=== PATIENT | male | born 1955 | race Caucasian/White ===

== ENCOUNTER → 2016-07-05 | Outpatient (CLI) | payer BC ==
[2016-07-05 14:20] LABS: BASO % 0.1 %; BASO ABS # 0.01 K/uL (0-0.2); COMPLETE YES; EOS % 1.5 %; HEMATOCRIT 45.2 % (42-52); IG% 0.1 %; LYMPH % 31.5 %; LYMPH ABS # 2.13 K/uL (1.2-3.4); MEAN CELL VOLUME 84.5 fL (80-100); MEAN CORPUSCULAR HEMOGLOBIN 29.5 pg (25-34); MEAN PLATELET VOLUME 11.2 fL (7.4-10.4); MONO % 9.5 %; NEUT % 57.3 %; PLATELET COUNT 282 K/uL (130-400); RED BLOOD COUNT 5.35 M/uL (4.7-6.1); WHITE BLOOD COUNT 6.76 K/uL (4.8-10.8)
[2016-07-05 14:52] LABS: ALT/SGPT 40 U/L (12-78); AST/SGOT 18 U/L (15-37); BLOOD UREA NITROGEN 15 mg/dl (7-18); BUN/CREATININE RATIO 16.5 (10-20); CALCIUM 8.9 mg/dl (8.5-10.1); CARBON DIOXIDE 24 mmol/L (21-32); CHLORIDE 105 mmol/L (98-107); CHOLESTEROL 153 mg/dl (0-200); CREATININE 0.89 mg/dl (0.60-1.40); GLUCOSE 116 mg/dl (70-99); SODIUM 138 mmol/L (136-145)
[2016-07-05 14:56] LABS: ALB/GLOB RATIO 1.1 (0.9-2); ALKALINE PHOSPHATASE 80 U/L (45-117); CHOLESTEROL/HDL RATIO 2.3; HDL CHOLESTEROL 67 mg/dl; LDL CHOLESTEROL CALCULATED 72 mg/dl; PROSTATE SPECIFIC ANTIGEN 0.429 ng/ml (0.000-4.000); TRIGLYCERIDES 70 mg/dl (0-150); VERY LOW DENSITY LIPOPROT CALC 14 mg/dl
== END | disposition home or self-care (01) ==
LOC: C.LABSPEC 14:09
PROVIDERS: ATTEND Family Medicine
DX: Z00.00 Encounter for general adult medical examination without abnormal findings (principal); Z12.5 Encounter for screening for malignant neoplasm of prostate; I10 Essential (primary) hypertension; E78.2 Mixed hyperlipidemia; K21.9 Gastro-esophageal reflux disease without esophagitis

== ENCOUNTER → 2017-01-13 | Outpatient (CLI) | payer BC ==
[2017-01-13 14:55] LABS: BASO % 0.3 %; BASO ABS # 0.02 K/uL (0-0.2); COMPLETE YES; HEMATOCRIT 45.5 % (42-52); IG% 0.3 %; LYMPH % 30.4 %; MEAN CORPUSCULAR HEMOGLOBIN 30.1 pg (25-34); MEAN CORPUSCULAR HGB CONC 34.9 g/dl (32-36); MONO % 9.3 %; NEUT % 57.7 %; PLATELET COUNT 271 K/uL (130-400); RED BLOOD COUNT 5.29 M/uL (4.7-6.1); WHITE BLOOD COUNT 6.57 K/uL (4.8-10.8)
[2017-01-13 15:19] LABS: ALT/SGPT 41 U/L (12-78); AST/SGOT 22 U/L (15-37); BLOOD UREA NITROGEN 18 mg/dl (7-18); BUN/CREATININE RATIO 24.7 (10-20); CALCIUM 9.2 mg/dl (8.5-10.1); CARBON DIOXIDE 27 mmol/L (21-32); CHLORIDE 106 mmol/L (98-107); CREATININE 0.74 mg/dl (0.60-1.40); GLUCOSE 105 mg/dl (70-99); POTASSIUM 4.5 mmol/L (3.5-5.1); SODIUM 139 mmol/L (136-145)
[2017-01-13 15:21] LABS: ALKALINE PHOSPHATASE 97 U/L (45-117); CHOLESTEROL 120 mg/dl (0-200); CHOLESTEROL/HDL RATIO 2.1; HDL CHOLESTEROL 56 mg/dl; LDL CHOLESTEROL CALCULATED 53 mg/dl; TRIGLYCERIDES 54 mg/dl (0-150); VERY LOW DENSITY LIPOPROT CALC 11 mg/dl
== END | disposition home or self-care (01) ==
LOC: C.LABSPEC 14:28
PROVIDERS: ATTEND Family Medicine
DX: I10 Essential (primary) hypertension (principal); E78.2 Mixed hyperlipidemia

== ENCOUNTER → 2017-07-25 | Outpatient (CLI) | payer BC ==
[2017-07-25 13:55] LABS: BASO % 0.4 %; BASO ABS # 0.02 K/uL (0-0.2); EOS % 1.5 %; EOS ABS # 0.08 K/uL (0-0.5); HEMATOCRIT 44.1 % (42-52); HEMOGLOBIN 15.4 g/dL (14.0-18.0); IG# 0.01 K/uL (0.00-0.02); LYMPH ABS # 2.24 K/uL (1.2-3.4); MEAN CELL VOLUME 85.6 fL (80-100); MEAN CORPUSCULAR HEMOGLOBIN 29.9 pg (25-34); MEAN CORPUSCULAR HGB CONC 34.9 g/dl (32-36); MONO % 10.1 %; MONO ABS # 0.55 K/uL (0.11-0.59); NEUT % 46.8 %; NEUT ABS # 2.56 K/uL (1.4-6.5); PLATELET COUNT 239 K/uL (130-400); RED CELL DISTRIBUTION WIDTH CV 12.7 % (11.5-14.5); RED CELL DISTRIBUTION WIDTH SD 39.9 fL (36.4-46.3); WHITE BLOOD COUNT 5.46 K/uL (4.8-10.8)
[2017-07-25 14:21] LABS: ALT/SGPT 40 U/L (12-78); AST/SGOT 26 U/L (15-37); BLOOD UREA NITROGEN 14 mg/dl (7-18); CALCIUM 8.8 mg/dl (8.5-10.1); CARBON DIOXIDE 26 mmol/L (21-32); CREATININE 0.74 mg/dl (0.60-1.40); GLUCOSE 111 mg/dl (70-99); POTASSIUM 4.2 mmol/L (3.5-5.1); SODIUM 137 mmol/L (136-145)
[2017-07-25 14:26] LABS: ALKALINE PHOSPHATASE 101 U/L (45-117); CHOLESTEROL 112 mg/dl (0-200); LDL CHOLESTEROL CALCULATED 48 mg/dl; TOTAL PROTEIN 7.6 gm/dl (6.4-8.2)
== END | disposition home or self-care (01) ==
LOC: C.LABSPEC 13:26
PROVIDERS: ATTEND Family Medicine
DX: E78.2 Mixed hyperlipidemia (principal); I10 Essential (primary) hypertension; Z12.5 Encounter for screening for malignant neoplasm of prostate

== ENCOUNTER → 2018-01-22 | Outpatient (CLI) | payer BC ==
[2018-01-22 13:29] LABS: BASO % 0.3 %; BASO ABS # 0.02 K/uL (0-0.2); EOS % 1.6 %; EOS ABS # 0.12 K/uL (0-0.5); HEMATOCRIT 46.6 % (42-52); IG# 0.04 K/uL (0.00-0.02); LYMPH % 32.5 %; LYMPH ABS # 2.51 K/uL (1.2-3.4); MEAN CELL VOLUME 88.9 fL (80-100); MEAN CORPUSCULAR HEMOGLOBIN 30.5 pg (25-34); MEAN CORPUSCULAR HGB CONC 34.3 g/dl (32-36); MEAN PLATELET VOLUME 12.1 fL (7.4-10.4); MONO ABS # 0.77 K/uL (0.11-0.59); NEUT % 55.1 %; NEUT ABS # 4.27 K/uL (1.4-6.5); PLATELET COUNT 242 K/uL (130-400); RED CELL DISTRIBUTION WIDTH CV 12.9 % (11.5-14.5); RED CELL DISTRIBUTION WIDTH SD 42.2 fL (36.4-46.3); WHITE BLOOD COUNT 7.73 K/uL (4.8-10.8)
[2018-01-22 13:44] LABS: ALBUMIN 4.3 gm/dl (3.4-5.0); ALKALINE PHOSPHATASE 88 U/L (45-117); ALT/SGPT 54 U/L (12-78); AST/SGOT 28 U/L (15-37); BLOOD UREA NITROGEN 13 mg/dl (7-18); CALCIUM 9.2 mg/dl (8.5-10.1); CARBON DIOXIDE 30 mmol/L (21-32); CHOLESTEROL 155 mg/dl (0-200); CREATININE 0.83 mg/dl (0.60-1.40); GLUCOSE 100 mg/dl (70-99); LDL CHOLESTEROL CALCULATED 76 mg/dl; POTASSIUM 4.6 mmol/L (3.5-5.1); SODIUM 137 mmol/L (136-145); TOTAL PROTEIN 8.1 gm/dl (6.4-8.2)
== END | disposition home or self-care (01) ==
LOC: C.LABSPEC 12:26
PROVIDERS: ATTEND Family Medicine
DX: E78.2 Mixed hyperlipidemia (principal); I10 Essential (primary) hypertension